=== PATIENT | male | born 1990 | race Caucasian/White ===

== ENCOUNTER 2017-01-29 13:15 | Emergency (ER) | payer SELFPAY ==
--- NOTE | ~2017-01-29 | ER ---
PATIENT'S NAME: DAKOTA VÁSQUEZ [facility] AGE: 26 Y [address] ROOM: [place] [address] LOCATION: [facility] ADMIT DATE: 01/29/2017 ER/Outpatient Report DISCHARGE DATE: 01/29/2017 FAMILY PHYSICIAN: PHYSICIAN, NO ATTENDING PHYSICIAN: Taiwo Keen Time of arrival: 1315 hours. Time of evaluation: 1322 hours. CHIEF COMPLAINT: Blood in his urine. HISTORY OF PRESENT ILLNESS: The patient is a 26-year-old male, who presents to the emergency department today with a chief complaint of blood in his urine. He reports it has been off and on for the past year. He does have some bald spots as well over the past 2 years in scalp. He does have some pain at the end of urination. Denies any fevers or chills. No shortness of breath. No chest pain. No nausea or vomiting. No abdominal pain. He does have sexual intercourse with one partner. Denies any diarrhea or constipation. PAST MEDICAL HISTORY: Asthma. PAST SURGICAL HISTORY: Jaw. SOCIAL HISTORY: The patient smokes and quit 6 months ago. Denies any alcohol use. Reports occasional marijuana use. ALLERGIES: NO KNOWN DRUG ALLERGIES. MEDICATIONS: None. PRIMARY CARE DOCTOR: None. REVIEW OF SYSTEMS: All systems are reviewed by myself and negative with the exception of those discussed in HPI and past medical history. PHYSICAL EXAMINATION: PATIENT'S NAME: DAKOTA VÁSQUEZ [facility] AGE: 26 Y [address] ROOM: [place] [address] LOCATION: [facility] ADMIT DATE: 01/29/2017 ER/Outpatient Report DISCHARGE DATE: 01/29/2017 FAMILY PHYSICIAN: PHYSICIAN, NO ATTENDING PHYSICIAN: Taiwo Keen VITAL SIGNS: Weight 75 kg, blood pressure 173/104, pulse is 117, respiratory rate 18, temperature 98, oxygen saturation 95% on room air. GENERAL: The patient is a 26-year-old male, who appears stated age, in no acute distress at this time. HEENT: Normocephalic and atraumatic. Pupils are equal, round, and reactive to light. Nares are patent bilaterally. TMs are clear. Oropharynx is clear. NECK: Supple. There is no nuchal rigidity. CARDIOVASCULAR: Regular rate and rhythm. No murmurs, rubs, or gallops. LUNGS: Clear to auscultation bilaterally. No wheezes, rales, or rhonchi. ABDOMEN: Soft, nontender, and nondistended. No rebound, rigidity, or guarding. MUSCULOSKELETAL: The patient moves all 4 extremities. SKIN: Warm and dry. There are no rashes or lesions noted. LABS AND X-RAYS: Urinalysis shows 500 leukocyte esterase, 15 protein, 5 ketones, 10 blood, 20 to 50 wbc's, negative bacteria. GC and chlamydia are obtained. Chlamydia is positive. Gonorrhea is negative. IMPRESSION: 1. Chlamydia-positive urethritis. 2. Alopecia. 3. Initial visit. EMERGENCY DEPARTMENT COURSE: The patient was brought back to the examination room. Seen and evaluated by myself. Laboratory analysis is obtained as described above. The patient does have a circumferential areas of alopecia to total on the posterior scalp as well as the left parietal scalp region and discussed results of the laboratory analysis with the patient. I have recommended treating the patient for Tinea capitis. We also treated the for the sexually transmitted disease. The patient is given 250 mg of IM Rocephin. He is given a prescription for doxycycline. He is also given a prescription for fluconazole and selenium. I have discussed that I would like him to follow up with primary care doctor in 2 days for re-evaluation. I have discussed with him he needs to get further STD testing including HIV. I have discussed return to care instructions including worsening symptoms or any other concerns to return to the emergency department as soon as possible. He is also to discuss with any sexual partners that they will need to be treated for chlamydia as well. The patient is agreeable without further questions at this time. DISPOSITION: The patient discharged home in good condition. PATIENT'S NAME: DAKOTA VÁSQUEZ [facility] AGE: 26 Y [address] ROOM: [place] [address] LOCATION: [facility] ADMIT DATE: 01/29/2017 ER/Outpatient Report DISCHARGE DATE: 01/29/2017 FAMILY PHYSICIAN: PHYSICIAN, NO ATTENDING PHYSICIAN: Taiwo Keen DO BRENNAN ORELLANA/modl /[id number] d: 01/30/17 1107 t: 02/01/17 0755, OUTPATIENT REPORT
[2017-01-29 13:44] LABS: BILIRUBIN URINE NEGATIVE (NEGATIVE); BLOOD URINE 10 /UL (NEGATIVE); COLOR URINE YELLOW (YELLOW); GLUCOSE URINE NEGATIVE (NEGATIVE); KETONE URINE 5 mg/dL (NEGATIVE); LEUKOCYTES URINE 500 /UL (NEGATIVE); NITRITE URINE NEGATIVE (NEGATIVE); PROTEIN URINE 15 mg/dL (NEGATIVE); SPEC GRAVITY URINE 1.025 (1.003-1.035); TURBIDITY URINE 2+ (CLEAR); UROBILINOGEN URINE NORMAL (NORMAL)
[2017-01-29 13:53] LABS: BACTERIA URINE NEGATIVE (NEGATIVE); EPITHELIAL URINE RARE #/HPF (NEGATIVE); MUCUS URINE 1+ (NEGATIVE); RBC URINE 0-2 #/HPF (NEGATIVE); WBC URINE 20-50 #/HPF (NEGATIVE)
== END 2017-01-29 15:42 | disposition disaster alternative care site (69) ==
LOC: GMED 13:15
PROVIDERS: Emergency Medicine
DX: A56.01 Chlamydial cystitis and urethritis (principal); L65.9 Nonscarring hair loss, unspecified; J45.909 Unspecified asthma, uncomplicated
CPT/HCPCS: J0696